=== PATIENT | female | born 1975 | race Caucasian/White ===

== ENCOUNTER 2020-12-12 09:27 | Emergency (ER) | payer OTHER ==
[~2020-12-12] VITALS: Ht 167.6 cm; Wt 77.1 kg
[~2020-12-12 09:27] MED LIST: CODACE30 PO; FLUO20 PO; KETO10 PO; OXYACE5T PO
[2020-12-12 10:32] LABS: Source, Urine Clean Catch
[2020-12-12 10:40] LABS: Appearance, Urine Clear (Clear); Bilirubin, Urine Neg (Neg); Blood, Urine Neg (Neg); Color, Urine Yellow (P-Yellow); Glucose Qualitative, Urine Neg (Neg); Ketones, Urine Neg (Neg); Leukocyte Esterase, Urine Neg (Neg); Nitrite, Urine Neg (Neg); Protein, Urine Neg (Neg); Urobilinogen, Urine NORM (Normal); pH, Urine 6.5 (5.0-8.0)
[2020-12-12 10:59] LABS: BASOPHILS ABSOLUTE AUTO 0.05 K/mm3 (0.00-0.23); BASOPHILS PERCENT AUTO 1 % (0-2); EOSINOPHILS ABSOLUTE AUTO 0.08 K/mm3 (0.00-0.68); EOSINOPHILS PERCENT AUTO 1 % (0-6); Hematocrit 44.6 % (33.0-51.0); Hemoglobin 14.2 g/dL (11.5-16.0); IMMATURE GRAN ABSOLUTE AUTO 0.03 K/mm3 (0.00-0.10); IMMATURE GRAN PERCENT AUTO 1 % (0-1); LYMPHOCYTES ABSOLUTE AUTO 1.69 K/mm3 (0.84-5.20); LYMPHOCYTES PERCENT AUTO 27 % (21-46); MONOCYTES ABSOLUTE AUTO 0.51 K/mm3 (0.16-1.47); MONOCYTES PERCENT AUTO 8 % (4-13); Mean Corpuscular HGB 29.2 pg (26.0-34.0); Mean Corpuscular HGB Conc 31.8 g/dL (31.5-36.5); Mean Corpuscular Volume 92 fL (80-100); Mean Platelet Volume 11.4 fL (9.1-12.4); NEUTROPHILS ABSOLUTE AUTO 3.87 K/mm3 (1.96-9.15); NEUTROPHILS PERCENT AUTO 62 % (41-73); Platelet Count 345 K/mm3 (150-400); RDW Coefficient Variation 13.1 % (11.7-14.2); RDW Standard Deviation 44.1 fL (35.1-46.3); Red Blood Cell Count 4.86 M/mm3 (3.80-5.20); White Blood Cell Count 6.23 K/mm3 (4.00-11.30)
[2020-12-12 11:15] LABS: Alanine Aminotransfer (ALT/SGP 38 U/L (12-78); Albumin, Blood 3.8 g/dL (3.4-5.0); Alk Phos 58 U/L (50-136); Anion Gap 6 mmol/L (6-16); Aspartate Aminotrans (AST/SGOT 18 U/L (12-37); Bilirubin, Total 0.4 mg/dL (0.1-1.0); Blood Urea Nitrogen 9 mg/dL (8-24); Bun/Creatinine Ratio 16.4 (12.0-20.0); CO2, Blood 28 mmol/L (21-32); Calcium, Blood 9.3 mg/dL (8.5-10.1); Chloride, Blood 108 mmol/L (98-108); Creatinine, Blood 0.55 mg/dL (0.40-1.00); Globulin, Blood 3.8 g/dL (2.2-4.0); Glomerular Filtration Rate >60 (60-); Glucose, Blood 93 mg/dL (70-99); Potassium, Blood 4.1 mmol/L (3.5-5.5); Sodium, Blood 142 mmol/L (136-145); Total Protein, Blood 7.6 g/dL (6.4-8.2)
[2020-12-12] MEDS ORDERED: DIFLUCAN PO (11:19)
[2020-12-12] MEDS ORDERED: ESTROGEN (11:20)
== END 2020-12-12 13:16 | disposition home or self-care (01) ==
LOC: ER 09:27
PROVIDERS: Emergency Medicine
DX: N83.201 Unspecified ovarian cyst, right side (principal); Z79.3 Long term (current) use of hormonal contraceptives; Z87.442 Personal history of urinary calculi
CPT/HCPCS: 36415; 74177; 80053; 81003; 83690; 85025; 96374; 96375; 99284-25; J1885; J2405; Q9967

== ENCOUNTER → 2022-04-16 | Outpatient (CLI) | payer OTHER ==
[~2022-04-16] MED LIST changes: +DIFLUCAN PO; +ESTROGEN
[2022-04-16 08:48] LABS: BASOPHILS ABSOLUTE AUTO 0.05 K/mm3 (0.00-0.23); BASOPHILS PERCENT AUTO 1 % (0-2); EOSINOPHILS PERCENT AUTO 1 % (0-6); Hematocrit 48.1 % (33.0-51.0); Hemoglobin 15.9 g/dL (11.5-16.0); IMMATURE GRAN ABSOLUTE AUTO 0.03 K/mm3 (0.00-0.10); IMMATURE GRAN PERCENT AUTO 0 % (0-1); LYMPHOCYTES ABSOLUTE AUTO 2.29 K/mm3 (0.84-5.20); LYMPHOCYTES PERCENT AUTO 30 % (21-46); MONOCYTES PERCENT AUTO 8 % (4-13); Mean Corpuscular HGB 30.2 pg (26.0-34.0); Mean Corpuscular HGB Conc 33.1 g/dL (31.5-36.5); Mean Corpuscular Volume 91 fL (80-100); Mean Platelet Volume 9.9 fL (9.1-12.4); NEUTROPHILS ABSOLUTE AUTO 4.64 K/mm3 (1.96-9.15); NEUTROPHILS PERCENT AUTO 60 % (41-73); Platelet Count 312 K/mm3 (150-400); RDW Coefficient Variation 12.9 % (11.7-14.2); RDW Standard Deviation 42.6 fL (35.1-46.3); Red Blood Cell Count 5.27 M/mm3 (3.80-5.20); White Blood Cell Count 7.71 K/mm3 (4.00-11.30)
[2022-04-16 09:06] LABS: Bun/Creatinine Ratio 15.4 (12.0-20.0); Calcium, Blood 9.2 mg/dL (8.5-10.1); Creatinine, Blood 0.78 mg/dL (0.40-1.00); Potassium, Blood 3.8 mmol/L (3.5-5.5)
== END ==
LOC: LAB SHORT 08:44
PROVIDERS: Physician Assistant Medical
DX: R10.32 Left lower quadrant pain (principal)
CPT/HCPCS: 80048; 85025